=== PATIENT | male | born 1990 | race Caucasian/White ===

== ENCOUNTER 2017-11-05 19:14 | Emergency (ER) | payer OTHER ==
[2017-11-05 19:19] VITALS: O2SAT 99
--- NOTE | 2017-11-05 19:24 | EDPHY ---
H & P Stated Complaint: TOOK 20 UNITS NOVALIN R, SUGAR WAS 130, THEN SUGAR 38, ATE SUGAR, DROVE HER Time Seen by Provider: 11/05/17 19:24 HPI/ROS: CHIEF COMPLAINT: Insulin reaction, hyperglycemia HISTORY OF PRESENT ILLNESS: The patient presents to the ED after he developed hypoglycemia after inadvertently taking too much insulin. The patient reportedly had a blood sugar of 38. He took glucose and was feeling shaky. He drove himself to the emergency department. He reports that he has not been sick recently. He denies fever, cough or congestion. The patient is feeling somewhat anxious about his previously detected low blood sugar. REVIEW OF SYSTEMS: A comprehensive 10 point review of systems is otherwise negative aside from elements mentioned in the history of present illness. Source: Patient - Personal History Current Tetanus/Diphtheria Vaccine: Unsure - Medical/Surgical History Hx Asthma: No Hx Chronic Respiratory Disease: No Hx Diabetes: Yes Hx Cardiac Disease: No Hx Renal Disease: No Hx Cirrhosis: No Hx Alcoholism: No Hx HIV/AIDS: No Hx Splenectomy or Spleen Trauma: No Other PMH: DIABETES - Social History Smoking Status: Former smoker - Physical Exam Exam: General Appearance: Alert, anxious, no acute distress Eyes: Pupils equal and round no pallor or injection ENT, Mouth: Mucous membranes moist Respiratory: There are no retractions, lungs are clear to auscultation Cardiovascular: Regular rate and rhythm Gastrointestinal: Abdomen soft nontender Neurological: 5/5 strength all 4 extremities Skin: Warm and dry, no rashes Musculoskeletal: Neck is supple nontender Extremities: symmetrical, full range of motion Psychiatric: Patient is oriented X 3, there is no agitation Constitutional: Initial Vital Signs Heart Rate 108 H 11/05/17 19:16 Respiratory Rate 22 H 11/05/17 19:16 Blood Pressure 167/96 H 11/05/17 19:16 O2 Sat (%) 99 11/05/17 19:16 O2 Delivery Mode Room Air Allergies/Adverse Reactions: No Known Allergies Allergy (Unverified 11/05/17 19:19) Home Medications: Medication Instructions Recorded Lisinopril 11/05/17 novoLIN R 11/05/17 Medical Decision Making ED Course/Re-evaluation: The patient arrives with a prior insulin reaction. His blood sugar at the time of my evaluation was 83. The patient was given additional juice and crackers. Plan will be for observation and serial fingerstick blood glucose testing in the emergency department. 8:30 p.m.: The patient is recheck his blood sugar with his glucometer and is now 230. He has no acute complaints of would like to be discharged home. He will return to the emergency department for any recurrent symptoms of hypoglycemia or lightheadedness. The patient will follow up with his regular hands assembler as scheduled tomorrow. - Data Points Laboratory Results: Laboratory Results 11/05/17 19:25 11/05/17 11/05/17 19:31 19:25 POC Hgb 18.0 gm/dL H gm/dL (13.7-17.5) POC Hct 53 % H % (40-51) POC Sodium 141 mEq/L mEq/L (135-145) Sodium 139 mEq/L mEq/L (135-145) POC Potassium 3.4 mEq/L mEq/L (3.3-5.0) Potassium 3.7 mEq/L mEq/L (3.5-5.2) POC Chloride 102 mEq/L mEq/L (97-110) Chloride 102 mEq/L mEq/L (97-110) Carbon Dioxide 22 mEq/l mEq/l (22-31) Anion Gap 15 mEq/L mEq/L (8-16) POC BUN 19 mg/dL mg/dL (7-23) BUN 19 mg/dL mg/dL (7-23) Creatinine 0.8 mg/dL mg/dL (0.7-1.3) POC Creatinine 0.8 mg/dL mg/dL (0.7-1.3) Estimated GFR > 60 Glucose 81 mg/dL mg/dL (70-100) POC Glucose 83 mg/dL mg/dL (70-100) Calcium 9.4 mg/dL mg/dL (8.5-10.4) Point of Care Test Results: 11/05/17 19:31 POC Sodium 141 POC Potassium 3.4 POC Chloride 102 POC BUN 19 POC Creatinine 0.8 POC Glucose 83 Departure - Departure Disposition: Home, Routine, Self-Care Clinical Impression: Hypoglycemia due to insulin Condition: Good Instructions: Hypoglycemia in a Person with Diabetes (ED) Additional Instructions: 1. Please contact your hands assembler tomorrow to get a insulin refill. Referrals: Elva Arellano MD [Primary Care Provider] - As per Instructions
[2017-11-05 20:44] VITALS: BP 135/87; PULSE 87; RESP 16
== END 2017-11-05 20:44 | disposition home or self-care (01) ==
DX: E11.649 Type 2 diabetes mellitus with hypoglycemia without coma (principal); Z79.4 Long term (current) use of insulin; Z87.891 Personal history of nicotine dependence
CPT/HCPCS: 82947-QW